=== PATIENT | male | born 1960 | race Caucasian/White ===

== ENCOUNTER 2019-03-25 12:54 | Inpatient (IN) ==
[2019-03-25] MEDS ORDERED: ZOFRAN IV PRN (13:43)
[2019-03-25 15:22] LABS: AGAP 11; BUN 12 mg/dL (8-22); CALCIUM 9.1 mg/dL (8.8-10.2); CHLORIDE 100 mmol/L (98-107); COSMO 278; CREATININE 0.7 mg/dL (0.7-1.2); ESTIMATED GFR > 60; GLUCOSE 106 mg/dL (70-104); POTASSIUM 4.4 mmol/L (3.5-5.1); SODIUM 139 mmol/L (136-145); TCO2 28 mmol/L (25-35)
--- NOTE | 2019-03-25 16:26 | Diag Imaging Result Doc PS360 ---
CT ABD/PELVIS W/IV CONT ONLY - 03/25/2019 INDICATION: Abdominal pain COMPARISON: 03/25/2017 FINDINGS: There is significant consolidation of both lower lobes. Trace right pleural effusion. Heart size is top normal with no pericardial effusion. The liver, gallbladder, spleen, pancreas, adrenals, and kidneys are normal. The small bowel appears normal. The colon and rectum are diffusely dilated and filled with fluid and stool. There is some slight surrounding inflammatory edema. Prostate is atrophic. Urinary bladder is collapsed although there is probably urinary bladder wall thickening. There are fractures of the posterior right 10th, 11th, and 12th ribs. There is advanced degeneration throughout the lumbar spine and pelvis. IMPRESSION: 1. Posterior right 10th, 11th, and 12th rib fractures. 2. Moderate bilateral lower lobe consolidation compatible with pneumonia. Trace right pleural effusion. 3. Distended colon with surrounding inflammation. Consistent with diffuse colitis. 4. Urinary bladder wall thickening suggesting cystitis. This exam was performed using automated exposure control, adjustment of mA or kV according to patient size, and/or use of iterative reconstruction technique Electronically signed by Les Morgan 03/25/2019 4:24 PM
[2019-03-25] MEDS: NS 1,000 ML IV SCH (16:31)
[2019-03-25] MEDS: PEPCID IV SCH (16:31)
[2019-03-25] MEDS: SODIUM CHLORIDE 0.9% INJ SCH (16:31)
[2019-03-25] MEDS: DILAUDID IV PRN (17:07)
[2019-03-25] MEDS: ZOSYN 3.375 GM in NS 50 ML IV SCH ×2 (17:28→22:46)
[2019-03-25] MEDS: LEVAQUIN 500 MG/D5W 500 MG/100 ML IVPB IV SCH (18:40)
[2019-03-25] MEDS ORDERED: RELISTOR SUBQ ONE (21:16)
--- NOTE | 2019-03-25 22:19 | HISTORY AND PHYSICAL ---
CHIEF COMPLAINT: Constipation, abdominal distention, nausea since Monday. HISTORY OF PRESENT ILLNESS: He is a 59-year-old white gentleman who had a fall after he blacked out on Monday, seen in the walk-in clinic. The patient had rib fractures on the right side with atelectasis and he was also taking chronic pain medications. He came to my office as a followup that he has been taking Mag citrate without any help. His belly was distended and follow up x- rays revealed marked dilatation of the transverse colon and rectal exam heme- negative stool. Soft stool noted in the rectum. Basically admitted to the hospital. On the flat/upright of the abdomen, he had some air fluid levels. Looks like a bowel obstruction at some descending colon. Admitted to the hospital. Bowel obstruction, impending pneumonia on the right side due to splinting from the rib fractures. As a result, a hospital admission was warranted. PAST MEDICAL HISTORY: Foot drop in the right side, homocystinemia, hyperlipidemia, history of pulmonary embolism in 2016, insomnia, tobacco abuse, varicose veins in both lower extremities, vitamin B12 deficiency. 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 MEDICATIONS: [place], Lipitor, hydroxyzine, gabapentin, Folbic acid. ALLERGIES: Not known. SOCIAL HISTORY: , 2 kids. Lives in [place]. No smoking. Seldom drinks alcohol. He has been on chronic pain medicine by Dr. Torres in the past and was seen by Dr. Perez. FAMILY HISTORY: Father of brain cancer at 68. Mom is 83 years old and stable. HEALTH MAINTENANCE: Flu vaccine declined. Last physical exam July 2018. REVIEW OF SYSTEMS: HEENT: No headache. No vision problem. No earache. No sore throat. Neck: No goiter. No lymphadenopathy. No bruit. Pulmonary: No chest pain. Pain in the right side of the chest. No cough. No difficulty in breathing. No PND. No orthopnea. No swelling of feet. Gastrointestinal: Abdominal distention, constipation, nausea. No bleeding per rectum. No weakness in the right leg. Neurologic: No focal symptoms or weakness. PHYSICAL EXAMINATION: Is 97 degrees, pulse 64, blood pressure is 157 x 94. He is 6 feet tall, 204 pounds. HEENT: Atraumatic, normocephalic. Pupils equal, reactive to light. TMs are normal. Nose and throat within normal limits. NECK: Supple. No lymphadenopathy. No goiter. CHEST: Decreased breath sounds in the right base. HEART: Sounds are regular. ABDOMEN: Belly is soft, distended. No signs of peritonitis. RECTAL: Heme negative. Soft stool noted in the rectum. EXTREMITIES: No peripheral edema. NEUROLOGIC: No obvious neurological deficits. LABORATORIES: CBC is pending. SMA [address] scan of the abdomen and pelvis is noted with right posterior 10, 11, and 12 rib fractures. Moderate colon distension with colitis with surrounding inflammation, urinary bladder thickening. ASSESSMENT AND PLAN: 1. A 59-year-old white gentleman admitted to the hospital after Right rib fractures complicated by hypostatic pneumonia with ileus and dilatation of the colon with chronic pain medications. PLAN IS FOLLOWS:: 1. Incentive spirometry. 2. IV Zosyn, IV Levaquin. 3. IV fluids. 4. Constipation on Dulcolax and also we will give the Relistor to negate the effects of the narcotics. 5. History of pulmonary embolism. High risk for deep vein thrombosis. We will start some Lovenox 40 mg subcu and consult with Dr. Cerrato on-call. 6. Diet NPO. 7. History of homocystinemia. Continue replacement vitamin B12 and folic acid and will follow up. cc: Curry Vogel MD MTDD
[2019-03-25] MEDS: LACTULOSE PO SCH (22:47)
[2019-03-25] MEDS: LOVENOX SUBQ SCH (22:47)
[2019-03-25] MEDS: DULCOLAX PR SCH (22:47)
[2019-03-26] MEDS: NS 1,000 ML IV SCH ×2 (04:09→13:45)
[2019-03-26] MEDS: ZOSYN 3.375 GM in NS 50 ML IV SCH ×4 (05:57→23:39)
[2019-03-26] MEDS: PEPCID IV SCH ×2 (05:57→15:55)
[2019-03-26] MEDS: DILAUDID IV PRN ×2 (06:16→18:12)
[2019-03-26 07:07] LABS: BASO# 0.02 X1000 (0.0-0.2); BASO% 0.2 % (0.0-0.8); EOS# 0.03 X1000 (0.0-0.7); EOS% 0.4 % (0.0-10.0); HEMATOCRIT 42.6 % (42.0-52.0); HEMOGLOBIN 14.2 g/dL (14.0-18.0); LYMPH# 0.97 X1000 (1.2-3.4); LYMPH% 12.1 % (20.5-51.1); MCHC 33.3 g/dL (33-37); MCV 99.1 FL (81-99); MONO# 0.55 X1000 (0.11-0.59); MONO% 6.8 % (1.7-9.3); MPV 10.3 FL (7.4-10.4); NEUT# 6.47 X1000 (1.4-6.5); NEUT% 80.5 % (42.2-75.2); PLT 246 X1000 (130-400); RDW 13.2 % (11.5-14.5); WBC 8.04 X1000 (4.8-10.8)
[2019-03-26 07:39] LABS: AGAP 9; BUN 11 mg/dL (8-22); CALCIUM 8.5 mg/dL (8.8-10.2); CHLORIDE 104 mmol/L (98-107); COSMO 277; CREATININE 0.7 mg/dL (0.7-1.2); ESTIMATED GFR > 60; GLUCOSE 100 mg/dL (70-104); POTASSIUM 4.2 mmol/L (3.5-5.1); SODIUM 139 mmol/L (136-145); TCO2 26 mmol/L (25-35)
--- NOTE | 2019-03-26 09:23 | Diag Imaging Result Doc PS360 ---
ABDOMEN FLAT/UPRIGHT - 03/26/2019 INDICATION: pain COMPARISON: CT from 03/25/2019 FINDINGS: There is stable moderate gaseous dilation of the colon diffusely, with numerous air-fluid levels. Small bowel is top normal in size. No free air. IMPRESSION: Moderate colonic ileus with fluid filling the colon. Appearance is stable from prior. Electronically signed by Les Morgan 03/26/2019 9:21 AM
[2019-03-26] MEDS: LACTULOSE PO SCH ×2 (09:24→20:10)
[2019-03-26] MEDS ORDERED: DULCOLAX PR ONE (13:32)
--- NOTE | 2019-03-26 13:55 | GASTROENTEROLOGY CONSULTATION ---
DATE: 03/26/2019 REASON FOR CONSULTATION: Ileus, abdominal distention. HISTORY OF PRESENT ILLNESS: This is a 59-year-old male who reports blacking out on Monday. He hit his right side and went to Urgent Care on Monday. On evaluation in the Urgent Care, he was found to have distention of his abdomen and x-ray revealed marked dilatation of the transverse colon and rectum. It was noted that he had a Hemoccult negative stool. He was noted to have some air fluid levels on flat and upright x-ray. He was sent to the hospital for admission. The patient states he had a bowel movement on Monday prior to his episode of syncope. Normally he has a bowel movement daily like clockwork around 5:00 in the morning. He does take pain medication for a history of nerve damage on his right side. The patient states he had not been taking as much pain medication lately. His had given him magnesium citrate at home but it made him sick. He was unable to tolerate it, so he followed with Dr. Vogel who recommended admission for further evaluation. The patient denies ever having an EGD or colonoscopy. He states at the Urgent Care they gave him a steroid shot and NSAIDs for his fractured ribs. The patient has denied any visible blood in the stool or black stools. PAST MEDICAL HISTORY: Hyperlipidemia, history of pulmonary embolism in 2016, tobacco abuse, foot drop right side related to nerve damage. PAST SURGICAL HISTORY: Right hip surgery related to a dislocation complicated by nerve damage, foot drop and chronic pain. ALLERGIES: No known drug allergies. HOME MEDICATIONS: Gabapentin 300 mg 3 times a day, [place] 10 mg every 4-6 hours as needed. SOCIAL HISTORY: He smokes one pack of cigarettes daily. He reports daily alcohol use, approximately 8 to 10 beers per day. He is . REVIEW OF SYSTEMS: Per history of present illness. PHYSICAL EXAMINATION: VITAL SIGNS: Temperature 99.5, pulse 69, respirations 22, blood pressure 133/87. GENERAL: The patient is awake, alert in no acute distress. HEENT: Normocephalic. Atraumatic. Pupils equal, round and reactive to light. Sclerae are anicteric. RESPIRATORY: Some decreased breath sounds. CARDIOVASCULAR: Regular rate and rhythm. ABDOMEN: Distended, somewhat firm. Some tenderness with palpation. EXTREMITIES: No lower extremity edema noted. NEUROLOGIC: Cranial nerves II-XII grossly intact. DIAGNOSTIC RESULTS/LABORATORY/HEMATOLOGY: WBC 8.04, hemoglobin 14.2, hematocrit 42.6, MCV 99.1, platelets 246. Chemistry; sodium 139, potassium 4.2, chloride 101, CO2 26, BUN 11, creatinine 0.7, glucose 100, calcium 8.5. Albumin 3.3. IMAGING: Abdominal pelvic CT scan showed posterior right 10th, 11th and 12th rib fractures, moderate bilateral lower lobe consolidation compatible with pneumonia with trace right pleural effusion, distended colon with surrounding inflammation consistent with diffuse colitis, urinary bladder wall thickening suggesting cystitis. Abdominal x-ray on 03/26/2019 showed moderate colonic ileus with fluid-filled colon, stable from CT scan. ASSESSMENT AND PLAN: 1. Recent syncope. 2. Rib fractures, right side. 3. Pneumonia on antibiotics. 4. Constipation, chronic opioid use. Patient had been given Relistor and received Dulcolax yesterday. Continue lactulose as ordered. Will add another Dulcolax suppository today. Advance to clear liquid diet as tolerated. 5. We will follow. He may need colonoscopy versus flexible sigmoidoscopy. Further plans will be made according to his progress. I have discussed this case with Dr. Pro. Dictated by SOLANGE Maza for Harris Cummings MD cc: SOLANGE Banda MD Jagan Reddy, MD
[2019-03-26] MEDS: LEVAQUIN 500 MG/D5W 500 MG/100 ML IVPB IV SCH (16:16)
--- NOTE | 2019-03-26 18:54 | PROGRESS NOTE ---
DATE: 03/26/2019 SUBJECTIVE: Patient is still abdominally distended and pain in the right side of the chest. The patient was given Relistor, Dulcolax and MiraLAX. Followup abdominal x-rays no significant improvement. Waiting to be seen by strategic planner on-call. EXAM: Vital Signs: Low-grade fever 99.5, pulse is 69, blood pressure 133/87, 93% on room air. HEENT: Within normal limits. Neck: Supple. No lymphadenopathy. Chest: Bilateral air entry. Decreased breath sounds right base. Abdomen: Belly is soft and nontender. No signs of peritonitis. INVESTIGATIONS: CBC: White cell count 8, hematocrit 42, platelets 246. SMA 7 is normal. ProBNP 179. ASSESSMENT AND PLAN: 1. Right rib fractures with a hypostatic pneumonia. Continue on IV antibiotics. Incentive spirometry. 2. Ileus and possible cystitis. Plan of care is Relistor, Dulcolax, lactulose. 3. Deep vein thrombosis, gastrointestinal prophylaxis as per order sheet. Continue IV fluids. 4. Consulted with strategic planner advertising sales consultant and will follow up. LEVEL OF DOCUMENTATION: 25 minutes. cc: uCrry Vogel MD
[2019-03-26] MEDS: DULCOLAX PR SCH (20:10)
[2019-03-26] MEDS: LOVENOX SUBQ SCH (20:40)
[2019-03-27] MEDS: NS 1,000 ML IV SCH ×2 (05:18→18:21)
[2019-03-27] MEDS: ZOSYN 3.375 GM in NS 50 ML IV SCH ×3 (05:19→17:02)
[2019-03-27] MEDS: PEPCID IV SCH ×2 (05:19→16:38)
[2019-03-27] MEDS: DILAUDID IV PRN ×2 (05:50→18:24)
[2019-03-27 07:33] LABS: BASO# 0.03 X1000 (0.0-0.2); BASO% 0.4 % (0.0-0.8); EOS# 0.05 X1000 (0.0-0.7); EOS% 0.6 % (0.0-10.0); HEMATOCRIT 45.6 % (42.0-52.0); HEMOGLOBIN 15.2 g/dL (14.0-18.0); LYMPH# 1.05 X1000 (1.2-3.4); LYMPH% 13.4 % (20.5-51.1); MCH 32.8 PG (27-31); MCHC 33.3 g/dL (33-37); MCV 98.3 FL (81-99); MONO# 0.56 X1000 (0.11-0.59); MONO% 7.2 % (1.7-9.3); MPV 10.2 FL (7.4-10.4); NEUT# 6.14 X1000 (1.4-6.5); NEUT% 78.4 % (42.2-75.2); PLT 249 X1000 (130-400); RBC 4.64 XMIL (4.7-6.1); WBC 7.83 X1000 (4.8-10.8)
[2019-03-27 07:40] LABS: AGAP 9; BUN 10 mg/dL (8-22); CALCIUM 8.1 mg/dL (8.8-10.2); CHLORIDE 106 mmol/L (98-107); COSMO 275; CREATININE 0.7 mg/dL (0.7-1.2); ESTIMATED GFR > 60; GLUCOSE 101 mg/dL (70-104); POTASSIUM 4.1 mmol/L (3.5-5.1); SODIUM 138 mmol/L (136-145); TCO2 23 mmol/L (25-35)
[2019-03-27] MEDS: LACTULOSE PO SCH ×2 (09:14→20:08)
--- NOTE | 2019-03-27 14:58 | GASTROENTEROLOGY PROGRESS NOTE ---
DATE: 03/27/2019 SUBJECTIVE: Patient states he has had several loose stools today. He still reports abdominal distention and discomfort. Patient has received laxatives, including lactulose and Dulcolax. OBJECTIVE: Vital Signs: Temperature 99.0, pulse 58, respirations 22, blood pressure 128/81. General: Patient is awake, alert, in no acute distress. Abdomen: With distention noted, slightly softer than yesterday, positive bowel sounds. LABORATORY: Hematology: WBC 7.83, hemoglobin 15.2, hematocrit 45.6, MCV 98.3, platelets 249,000. Chemistry: Sodium 138, potassium 4.1, chloride 106, CO2 of 23, BUN 10, creatinine 0.7, glucose 101, calcium 8.1. ASSESSMENT AND PLAN: 1. Recent syncope, fall with right rib fractures. 2. Pneumonia, on antibiotics. 3. Ileus. Patient has received laxatives, but continues to have abdominal distention. PLAN: Continue liquid diet as tolerated. Will plan for a colonoscopy on Monday. I have discussed the procedure along with the benefits and risks with the patient and he wishes to proceed. Further plans will be made according to findings. I have discussed this case with Dr. Cummings. Dictated by SOLANGE Maza for Harris Cummings MD cc: SOLANGE Banda MD Jagan Reddy, MD
[2019-03-27] MEDS: SODIUM CHLORIDE 0.9% INJ SCH (16:38)
[2019-03-27] MEDS: LEVAQUIN 500 MG/D5W 500 MG/100 ML IVPB IV SCH (18:20)
--- NOTE | 2019-03-27 19:49 | PROGRESS NOTE ---
DATE: 03/27/2019 SUBJECTIVE: Appreciated GI consult. Patient had several bowel movements. Less abdominal distention. EXAMINATION: Temperature is 98 degrees, pulse 73, blood pressure is stable.HEENT: Within normal limits. Decreased breath sounds at the right base. Heart: Sounds are regular. Abdomen: Belly is soft and less distended. No signs of peritonitis. LABS: CBC: White cell count 7.8, hematocrit 45, platelets 249,000. SMA 7 is normal. ASSESSMENT AND PLAN: 1. Hypostatic pneumonia, incentive spirometry, on IV antibiotics. 2. Ileus is getting better. Continue on laxatives and liquid diet. Plan for colonoscopy on Monday. We will repeat the x-ray in the morning. Continue present treatment. LEVEL OF DOCUMENTATION: 35 minutes. cc: Curry Vogel MD
[2019-03-27] MEDS: DULCOLAX PR SCH (20:07)
[2019-03-28] MEDS: ZOSYN 3.375 GM in NS 50 ML IV SCH ×5 (06:07→23:32)
[2019-03-28] MEDS: NS 1,000 ML IV SCH ×2 (06:07→19:46)
[2019-03-28] MEDS: PEPCID IV SCH ×2 (06:07→15:57)
[2019-03-28 07:10] LABS: BASO# 0.04 X1000 (0.0-0.2); BASO% 0.6 % (0.0-0.8); EOS# 0.11 X1000 (0.0-0.7); EOS% 1.6 % (0.0-10.0); HEMATOCRIT 42.4 % (42.0-52.0); HEMOGLOBIN 14.2 g/dL (14.0-18.0); LYMPH# 1.03 X1000 (1.2-3.4); LYMPH% 14.6 % (20.5-51.1); MCH 32.9 PG (27-31); MCHC 33.5 g/dL (33-37); MCV 98.1 FL (81-99); MONO# 0.53 X1000 (0.11-0.59); MONO% 7.5 % (1.7-9.3); MPV 10.2 FL (7.4-10.4); NEUT# 5.36 X1000 (1.4-6.5); NEUT% 75.7 % (42.2-75.2); PLT 249 X1000 (130-400); RBC 4.32 XMIL (4.7-6.1); RDW 13.1 % (11.5-14.5); WBC 7.07 X1000 (4.8-10.8)
[2019-03-28 07:29] LABS: AGAP 11; BUN 7 mg/dL (8-22); CALCIUM 8.2 mg/dL (8.8-10.2); CHLORIDE 106 mmol/L (98-107); COSMO 277; CREATININE 0.7 mg/dL (0.7-1.2); ESTIMATED GFR > 60; GLUCOSE 99 mg/dL (70-104); POTASSIUM 3.9 mmol/L (3.5-5.1); SODIUM 140 mmol/L (136-145); TCO2 23 mmol/L (25-35)
[2019-03-28] MEDS: LACTULOSE PO SCH ×2 (08:26→20:55)
--- NOTE | 2019-03-28 08:58 | Diag Imaging Result Doc PS360 ---
EXAM: CHEST-2 VIEWS 03/28/2019 HISTORY: hypoxia TECHNIQUE: PA and lateral chest COMMENT: There is pleural fluid in the right hemithorax. There is platelike atelectasis in the right middle and lower lobes. There may be some atelectasis in the left base as well and the inspiration is generally suboptimal. IMPRESSION: Bibasilar atelectasis and right pleural effusion. Electronically signed by Olivier Patino 03/28/2019 8:56 AM
--- NOTE | 2019-03-28 09:07 | Diag Imaging Result Doc PS360 ---
EXAM: ABDOMEN FLAT/UPRIGHT 03/28/2019 HISTORY: pain TECHNIQUE: Flat and upright abdomen COMMENT: There are air-fluid levels in distended small bowel loops and the colon. There is a relative paucity of gas in the rectosigmoid colon. There is some question of a stricture of the proximal descending colon near the splenic flexure. In retrospect this may have been visible on the CT of 03/25/2019. Further evaluation of the colon is recommended to exclude the possibility of a malignant mass or stricture in this location. IMPRESSION: Colonic ileus versus obstruction in the proximal descending colon. Electronically signed by Olivier Patino 03/28/2019 9:05 AM
[2019-03-28] MEDS: DILAUDID IV PRN ×2 (11:06→22:43)
[2019-03-28] MEDS ORDERED: GOLYTELY PO ONE (14:00)
--- NOTE | 2019-03-28 15:55 | GASTROENTEROLOGY PROGRESS NOTE ---
DATE: 03/28/2019 SUBJECTIVE: Patient is sitting up in a chair, in no acute distress. He is currently tolerating a clear liquid diet. Patient reports having several bowel movements. He still reports some abdominal distention. Abdominal x-ray today showed colonic ileus versus obstruction in the proximal descending colon. OBJECTIVE: Vital Signs: Temperature 98.6 degrees, pulse 71, respirations 18, blood pressure 122/80. General: The patient is awake and alert, in no acute distress. Abdomen: Distended, soft. Positive bowel sounds. Laboratory: Hematology: WBC 7.07, hemoglobin 14.2, hematocrit 42.4, MCV 98.1, platelets 249,000. Chemistry: Sodium 140, potassium 3.9, chloride 106, CO2 of 23, BUN 7, creatinine 0.7, glucose 99, calcium 8.2. ASSESSMENT AND PLAN: 1. Recent syncopal episode with fall and right rib fracture. 2. Pneumonia. 3. Ileus versus obstruction. Imaging studies today showing colonic ileus versus obstruction in the proximal descending colon. 4. We have planned for colonoscopy tomorrow. Patient will drink colon prep today. Further plans will be made according to findings. I have discussed the procedure along with risks and benefits, and patient wishes to proceed. I have discussed this case with Dr. Cummings. Dictated by SOLANGE Maza for Harris Cummings MD cc: SOLANGE Banda MD Jagan Reddy, MD
[2019-03-28] MEDS: SODIUM CHLORIDE 0.9% INJ SCH (15:57)
[2019-03-28] MEDS: LEVAQUIN 500 MG/D5W 500 MG/100 ML IVPB IV SCH (16:36)
[2019-03-28] MEDS ORDERED: DULCOLAX PR ONE (18:01)
[2019-03-28] MEDS: LOVENOX SUBQ SCH (19:46)
[2019-03-28] MEDS: DULCOLAX PR SCH (20:55)
--- NOTE | 2019-03-28 22:05 | PROGRESS NOTE ---
DATE: 03/28/2019 SUBJECTIVE: The patient is a little better. He still has worsening of infiltrates, pneumoniae in the right base on the chest x-ray and abdominal x-rays he has a bowel obstruction with ileus, questionable obstruction at the descending colon. Waiting for colonoscopy. PHYSICAL EXAMINATION: Temperature is 97 degrees, pulse is 62, blood pressure 148/90.HEENT: Within normal limits. Neck: Supple. Chest: Bilateral air entry. Decreased breath sounds on the right side. Heart: Sounds are regular. Abdomen: Belly is soft, nontender. Neurologic: No obvious neurological deficits. INVESTIGATIONS: CBC: White cell count 7.0, hematocrit 42, platelets 249,000. SMA 7 was normal. ASSESSMENT AND PLAN: 1. Right rib fracture with a hypostatic pneumonia. Currently he is receiving antibiotics with Zosyn and Levaquin with incentive spirometry. Continue IV fluids. 2. Questionable obstruction of his left sigmoid colon. Waiting for colonoscopy tomorrow. Continue IV Pepcid for gastrointestinal prophylaxis and lactulose was given. Deep vein thrombosis prophylaxis with Lovenox, which is on hold for colonoscopy tomorrow and I discussed the plan of care with the patient. LEVEL OF DOCUMENTATION: 25 minutes. cc: Curry Vogel MD
[2019-03-29] MEDS: SODIUM CHLORIDE 0.9% INJ SCH (05:07)
[2019-03-29] MEDS: ZOSYN 3.375 GM in NS 50 ML IV SCH ×4 (05:07→22:04)
[2019-03-29] MEDS: NS 1,000 ML IV SCH ×3 (05:07→22:43)
[2019-03-29] MEDS: PEPCID IV SCH ×2 (05:07→16:52)
[2019-03-29] MEDS: LACTULOSE PO SCH ×2 (09:02→21:53)
[2019-03-29] MEDS ORDERED: DIPRIVAN 1% ONE ×2 (09:47→09:49)
[2019-03-29] MEDS ORDERED: XYLOCAINE-MPF 2% ONE (09:50)
[2019-03-29] MEDS ORDERED: VERSED ONE (10:02)
[2019-03-29] MEDS: DILAUDID IV PRN ×2 (14:49→21:56)
[2019-03-29] MEDS: LEVAQUIN 500 MG/D5W 500 MG/100 ML IVPB IV SCH (18:18)
--- NOTE | 2019-03-29 19:58 | PROGRESS NOTE ---
DATE: 03/29/2019 SUBJECTIVE: The patient is going for a colonoscopy, and he drank the GoLYTELY. He has good bowel movements, and clinically he is improving. OBJECTIVE: On examination, vital signs are stable. HEENT exam within normal limits. Neck is supple. No lymphadenopathy. Decreased breath sounds, right base. Belly is soft, nontender. ASSESSMENT AND PLAN: 1. Ileus. Waiting for colonoscopy, rule out colonic obstructions. 2. Hypostatic pneumonia. We will repeat the chest x-ray in the morning. Continue intravenous antibiotics. Incentive spirometry. 3. The patient is doing very well. Based on the colonoscopy, further recommendations will be followed. Level of documentation is 25 minutes. cc: Curry Vogel MD
[2019-03-29] MEDS: DULCOLAX PR SCH (21:53)
[2019-03-29] MEDS: LOVENOX SUBQ SCH (21:56)
[2019-03-30] MEDS: SODIUM CHLORIDE 0.9% INJ SCH (04:23)
[2019-03-30] MEDS: PEPCID IV SCH (04:23)
[2019-03-30] MEDS: ZOSYN 3.375 GM in NS 50 ML IV SCH ×2 (04:24→12:52)
--- NOTE | 2019-03-30 08:30 | Diag Imaging Result Doc PS360 ---
EXAM: CHEST-2 VIEWS HISTORY: hypoxia TECHNIQUE: Chest two views COMPARISON: 03-28-19 FINDINGS: Poor inspiratory effort. There is basilar atelectasis. The heart is not enlarged. The vessels are not distended. There are no infiltrates. Small pleural effusions. IMPRESSION: No change. Electronically signed by José Lee 03/30/2019 8:28 AM
[2019-03-30] MEDS: DILAUDID IV PRN (09:27)
[2019-03-30] MEDS: LACTULOSE PO SCH (09:28)
--- NOTE | 2019-03-30 11:28 | GASTROENTEROLOGY PROGRESS NOTE ---
DATE: 03/30/2019 SUBJECTIVE: Patient feels better today. He had a colonoscopy yesterday. Findings showed normal mucosa in the terminal ileum, a polyp in the sigmoid colon with ablation performed, non bleeding diverticulosis in the sigmoid colon. He is recommended to have a follow up colonoscopy in 5 years. Patient states he tolerated a diet. He has had a small bowel movement today. OBJECTIVE: Vital Signs: Temperature 98.1 degrees, pulse 66, respirations 16, blood pressure 128/74. General: Patient is awake and alert. No acute distress. Abdomen: Soft. Positive bowel sounds. Nontender. LABORATORY: Hematology: WBC 7.07, hemoglobin 14.2, hematocrit 42.4, MCV 98.1, platelets 249. Chemistry: Sodium 140, potassium 3.9, chloride 106, CO2 of 23, BUN 7, creatinine 0.7, glucose 99. ASSESSMENT AND PLAN: 1. Recent syncopal episode with fall and right rib fracture. 2. Ileus versus bowel obstruction. Patient had colonoscopy yesterday with findings of diverticulosis and a colon polyp. He will need to repeat colonoscopy in 5 years. Patient is feeling better today. He has tolerated an advanced diet. Will continue to follow during his hospital course. He can follow up with us as an outpatient. I have discussed this case with Dr. Cummings. Dictated by SOLANGE Maza for Harris Cummings MD cc: SOLANGE Banda MD Jagan Reddy, MD
[2019-03-30 12:49] VITALS: BP 126/61
--- NOTE | 2019-03-30 20:09 | DISCHARGE SUMMARY ---
ADMISSION DATE: 03/25/2019 DISCHARGE DATE: 03/30/2019 DISCHARGING DIAGNOSES: Right-sided rib fractures with hypostatic pneumonia. SECONDARY DIAGNOSES: 1. Ileus, worsening due to chronic pain medications. 2. History of footdrop on the right side. 3. Homocystinemia. 4. Hyperlipidemia. 5. History of pulmonary embolus in 2016. 6. Tobacco abuse. 7. Varicose veins in both extremities. 8. B12 deficiency. 9. History of right hip surgery due to recurrent dislocation. CONSULTATIONS: Dr. Cummings. PROCEDURES: Colonoscopy: No obstructive lesions noted, 3 mm sessile polyp, and diverticulosis. HOSPITAL COURSE: In brief, he is a 59-year-old white gentleman who basically came in after he had some syncope spells, sustained injury to the right rib, and seen in our clinic. He had a fracture of the right 8th, 9th, and 10th ribs posteriorly. The patient has been splinted followed by marker dilatation of the large bowel with possible bowel obstruction in the descending colon and ileus. He has been on chronic pain medications. As a result, he has been hospitalized. 1. For right-sided hypostatic pneumonia, he was continue on IV Zosyn and Levaquin along with incentive spirometry. 2. Ileus for which given some Dulcolax and MiraLAX and GoLYTELY. He is also given Relistor to negate the effects for chronic pain medication. He started having good bowel movements. Rectal wall, soft stool, heme-negative. He never had a colonoscopy. Dr. Cummings was consulted. Colonoscopy findings: No obstructive lesions. This is all related to ileus exacerbating from chronic narcotics. He needs to continue on MiraLAX and Movantik. 3. Part of the syncope workup, we will do as an outpatient. He is anxious to go home. LABORATORIES: CBC: White cell count 7, hematocrit 42, platelets 249,000. Sodium 140, potassium 3.9, chloride 106, BUN 11, creatinine 0.7, calcium 8.2. Troponin was negative. ProBNP was normal. STUDIES: Followup chest x-ray continues to have hypostatic pneumonia. DISCHARGING INSTRUCTIONS: 1. Gabapentin 300 p.o. t.i.d., [place], MiraLAX 17 g daily, Movantik 12.5 daily, ACB before the meals at the breakfast, and Levaquin 500 daily for 10 days. 2. Incentive spirometry. 3. Follow up in my office next week for follow up on x-rays and abdominal x-ray as well as workup for syncope. cc: MD Harris Murrieta MD MTDD
== END 2019-03-30 14:10 | disposition home or self-care (01) | DRG 189 ==
LOC: DIRADM 12:54 → 3N 15:05
PROVIDERS: ADMIT Internal Medicine; ATTEND Internal Medicine
PROC: EN.HEAT (2019-03-29 10:13)
CPT/HCPCS: 71020; 71046; 74019; 74020; 74177; 80048; 82040; 83880; 84484; 85025; 94761; 94799; A9270; J1170; J1650; J1956; J2250; J2405; J2543; J7030; Q9967; S0028